=== PATIENT | female | born 1990 | race Two or more races ===

== ENCOUNTER 2017-08-13 17:28 | Emergency (ER) | payer OTHER ==
[~2017-08-13] VITALS: Ht 167.6 cm; Wt 61.2 kg
== END 2017-08-13 22:41 | disposition home or self-care (01) ==
LOC: ER 17:28
DX: N39.0 Urinary tract infection, site not specified (principal); R10.31 Right lower quadrant pain

== ENCOUNTER 2017-10-06 13:23 | Emergency (ER) | payer OTHER ==
[~2017-10-06] VITALS: Ht 167.6 cm; Wt 60.8 kg
[2017-10-06] MEDS ORDERED: MACROBID 100 M100 MG (14:06)
== END 2017-10-06 18:03 | disposition home or self-care (01) ==
LOC: ER 13:23
DX: N39.0 Urinary tract infection, site not specified (principal)